=== PATIENT | female | born 1955 | race Hispanic/Latino ===

== ENCOUNTER 2020-06-14 09:02 | Day surgery (SDC) | payer OTHER ==
[2020-06-14] VITALS (20 sets, daily range): BP systolic 92–160; BP diastolic 37–70
[~2020-06-14] VITALS: Ht 157.5 cm; Wt 59.9 kg
[~2020-06-14 09:02] MED LIST: ACET-3194 PO; LEVO125T11 PO; LISI-613 PO
[2020-06-14] MEDS ORDERED: INDOMETHACIN 50 MG SUPP.RECT RC ONE (11:45)
[2020-06-14] MEDS ORDERED: IOHEXOL-350 50ML VIAL IV ONE (11:49)
[2020-06-14] MEDS ORDERED: MIDAZOLAM HCL 1 MG/ML 2ML VIAL ONE (11:55)
[2020-06-14] MEDS ORDERED: FENTANYL CITRATE PF 50 MCG/1 ML 2ML VIAL ONE (11:55)
[2020-06-14] MEDS ORDERED: SUCCINYLCHOLINE 200MG/10ML SYR ONE (11:58)
[2020-06-14] MEDS ORDERED: DEXAMETHASONE SOD PHOSPHATE 10MG/ML 1ML VIAL ONE (11:58)
[2020-06-14] MEDS ORDERED: ONDANSETRON HCL 4 MG/2 ML VIAL ONE (11:59)
== END 2020-06-14 14:15 | disposition home or self-care (01) ==
LOC: ENDO 09:02 → DAH 09:02 → ENDO 14:15
PROVIDERS: ATTEND Internal Medicine Gastroenterology
DX: Z46.59 Encounter for fitting and adjustment of other gastrointestinal appliance and device (principal); Z20.828 Contact with and (suspected) exposure to other viral communicable diseases; K83.1 Obstruction of bile duct; R19.7 Diarrhea, unspecified; I10 Essential (primary) hypertension; M19.90 Unspecified osteoarthritis, unspecified site; E03.9 Hypothyroidism, unspecified; F17.210 Nicotine dependence, cigarettes, uncomplicated; Z79.890 Hormone replacement therapy; Z98.890 Other specified postprocedural states; Z90.49 Acquired absence of other specified parts of digestive tract; Z98.891 History of uterine scar from previous surgery; Z79.899 Other long term (current) drug therapy
CPT/HCPCS: 43264; 43275; 74328; A4215; A4221; A4222; A4223; A4606; A4663; C1769; C1773; C9803; J0330; J1100; J2250; J2405; J3010; Q9967; U0003; 74330